=== PATIENT | female | born 1995 | race Caucasian/White ===

== ENCOUNTER 2016-12-27 10:18 | Emergency (ER) | payer BC, OTHER ==
[~2016-12-27] VITALS: Ht 165.1 cm; Wt 84.6 kg
[2016-12-27 10:26] VITALS: TEMP 37.2; Ht 165.1 cm; Wt 84.6 kg
[2016-12-27] MEDS ORDERED: IBUP-103 PO (10:40)
[2016-12-27] MEDS ORDERED: DOXY-300 PO (10:40)
[2016-12-27] MEDS ORDERED: BCPILLS PO (10:40)
[2016-12-27] MEDS ORDERED: SERT-234 PO (10:40)
[2016-12-27] MEDS ORDERED: ASPI-391 PO (10:40)
[2016-12-27] MEDS ORDERED: ONDANSETRON INJ 2 MG/ML 2 ML VIAL IV STA (11:07)
[2016-12-27] MEDS ORDERED: SODIUM CHLORIDE 0.9% 1000ML 1,000 ML IV STA (11:07)
--- NOTE | 2016-12-27 11:12 | EMERGENCY ROOM VISIT NOTE ---
History Report prepared by Winnie: Fiorella Carpenter Under the Supervision of: Dr. Joshua Rouse M.D. First contact with patient: 10:36 Chief Complaint: DEHYDRATION Stated Complaint: DEHYDRATION, V, HANDS AND ARMS TINGLING History of Present Illness The patient is a 21 year old white female with no past medical histry who presents to the ED with a cc of constant dehydration beginning 2 hours ago. Pt states that she was drinking last night and is now very dehydrated. She notes that she has had body tingling and hand cramping this morning. Positive nausea, vomiting, productive cough. Negative urinary symptoms, bowel changes. Pt states friend has bronchitis. She notes that her LNMP was 7 weeks ago and this is not normal for her. Source of History: patient Onset: 2 hours ago Position: other (global) Quality: other (dehydration) Timing: constant Associated Symptoms: + cough, + nausea, + vomiting, No urinary symptoms Note: Pt complains of body tingling and hand cramping. Review of Systems See HPI for pertinent positives and negatives. A total of ten systems were reviewed and were otherwise negative. Past Medical & Surgical Medical Problems: (1) No Known Active Medical Problems Family History No pertinent family history stated. Social History Smoking Status: Never Smoker Alcohol Use: occasionally Marital Status: single Housing Status: lives with roommate Occupation Status: [employer] student Current/Historical Medications Scheduled Control Pills ( Control Pills), 1 TAB PO DAILY Doxycycline (Monohydrate) (Doxycycline), 1 CAP PO DAILY Ondasetron Odt (Zofran Odt), 4 MG SL Q6H Sertraline (Zoloft), 150 MG PO DAILY Scheduled PRN Qdselbx-Pibhesyehgafv-Isfnlysp (Excedrin Extra Strength), 1 TAB PO UD PRN for Pain Ibuprofen Tab (Advil), 200-600 MG PO Q4H PRN for Pain Allergies Coded Allergies: No Known Allergies (Unverified , 12/27/16) Physical Exam Vital Signs Date Time Temp Pulse Resp B/P (MAP) Pulse Ox O2 Delivery O2 Flow Rate FiO2 12/27/16 12:40 83 16 130/85 98 Room Air 12/27/16 11:46 76 12/27/16 11:45 87 16 143/90 99 Room Air 12/27/16 10:26 37.2 95 16 138/90 96 Room Air Physical Exam GENERAL: Awake, alert, well-appearing, NAD HENT: Normocephalic, atraumatic. PERRL, EOM intact, vision intact EYES: Normal conjunctiva. Sclera non-icteric. NECK: Supple. No nuchal rigidity. FROM. RESPIRATORY: CTAB, no rhonchi, wheezing, crackles CARDIAC: RRR, no MRG ABDOMEN: Soft, NTND, BS+ MSK: No chest wall TTP, no LE edema NEURO: CN 2-12 intact, 5/5 upper and lower extremity strength, no dysmetria, no drift, good finger to nose, no sensory deficits. SKIN: No rash or jaundice noted. Medical Decision & Procedures ER Provider Diagnostic Interpretation: X-ray: Per my interpretation, radiologist review. CHEST ONE VIEW PORTABLE FINDINGS: The lungs are clear. Cardiac silhouette is normal in size. No pleural effusions. No pneumothorax. IMPRESSION: No acute process. Electronically signed by: Cristopher Chapin M.D. 12/27/2016 11:43 AM Dictated Date/Time: 12/27/2016 11:42 AM Laboratory Results 12/27/16 11:30 Red Blood Count 4.81, Mean Corpuscular Volume 86.9, Mean Corpuscular Hemoglobin 30.8, Mean Corpuscular Hemoglobin Concent 35.4, Mean Platelet Volume 8.3, Neutrophils (%) (Auto) 64.5, Lymphocytes (%) (Auto) 20.8, Monocytes (%) (Auto) 12.5, Eosinophils (%) (Auto) 1.8, Basophils (%) (Auto) 0.2, Neutrophils # (Auto ) 3.63, Lymphocytes # (Auto) 1.17, Monocytes # (Auto) 0.70, Eosinophils # (Auto ) 0.10, Basophils # (Auto) 0.01 12/27/16 11:30 Test 12/27/16 11:30 12/27/16 12:30 White Blood Count 5.62 K/uL (4.8-10.8) Red Blood Count 4.81 M/uL (4.2-5.4) Hemoglobin 14.8 g/dL (12.0-16.0) Hematocrit 41.8 % (37-47) Mean Corpuscular Volume 86.9 fL (80-100) Mean Corpuscular Hemoglobin 30.8 pg (25-34) Mean Corpuscular Hemoglobin Concent 35.4 g/dl (32-36) Platelet Count 216 K/uL (130-400) Mean Platelet Volume 8.3 fL (7.4-10.4) Neutrophils (%) (Auto) 64.5 % Lymphocytes (%) (Auto) 20.8 % Monocytes (%) (Auto) 12.5 % Eosinophils (%) (Auto) 1.8 % Basophils (%) (Auto) 0.2 % Neutrophils # (Auto) 3.63 K/uL (1.4-6.5) Lymphocytes # (Auto) 1.17 K/uL (1.2-3.4) Monocytes # (Auto) 0.70 K/uL (0.11-0.59) Eosinophils # (Auto) 0.10 K/uL (0-0.5) Basophils # (Auto) 0.01 K/uL (0-0.2) RDW Standard Deviation 41.2 fL (36.4-46.3) RDW Coefficient of Variation 13.1 % (11.5-14.5) Immature Granulocyte % (Auto) 0.2 % Immature Granulocyte # (Auto) 0.01 K/uL (0.00-0.02) Anion Gap 8.0 mmol/L (3-11) Est Creatinine Clear Calc Drug Dose 118.0 ml/min Estimated GFR () 120.3 Estimated GFR (Non- 103.8 BUN/Creatinine Ratio 14.0 (10-20) Calcium Level 8.9 mg/dl (8.5-10.1) Total Bilirubin 0.5 mg/dl (0.2-1) Direct Bilirubin 0.1 mg/dl (0-0.2) Aspartate Amino Transf (AST/SGOT) 25 U/L (15-37) Alanine Aminotransferase (ALT/SGPT) 20 U/L (12-78) Alkaline Phosphatase 88 U/L (45-117) Total Protein 7.6 gm/dl (6.4-8.2) Albumin 3.8 gm/dl (3.4-5.0) Lipase 119 U/L (73-393) Urine Color YELLOW Urine Appearance CLOUDY (CLEAR) Urine pH >= 9.0 (4.5-7.5) Urine Specific [place] 1.020 (1.000-1.030) Urine Protein NEG (NEG) Urine Glucose (UA) NEG (NEG) Urine Ketones NEG (NEG) Urine Occult Blood NEG (NEG) Urine Nitrite NEG (NEG) Urine Bilirubin NEG (NEG) Urine Urobilinogen NEG (NEG) Urine Leukocyte Esterase SMALL (NEG) Urine WBC (Auto) 1-5 /hpf (0-5) Urine RBC (Auto) 5-10 /hpf (0-4) Urine Hyaline Casts (Auto) 1-5 /lpf (0-5) Urine Epithelial Cells (Auto) >30 /lpf (0-5) Urine Bacteria (Auto) 1+ (NEG) Urine Renal Epithelial Cells /lpf (0-5) Urine Crystals AMORPHOUS SEDIMENT (NONE Urine Test NEG (NEG) Laboratory results reviewed by me Medications Administered Medications (Trade) Dose Ordered Sig/Emeka Route Start Time Stop Time Status Last Admin Dose Admin Sodium Chloride 1,000 ml @ 999 mls/hr Q1H1M STAT IV 12/27/16 11:07 12/27/16 12:07 DC 12/27/16 11:39 999 MLS/HR Ondansetron HCl (Zofran Inj) 4 mg NOW STAT IV 12/27/16 11:07 12/27/16 11:09 DC 12/27/16 11:38 4 MG ED Course 1036: The patient was evaluated in room C10. A complete history and physical exam was performed. 1107: Zofran Inj 4mg IV, Sodium Chloride 1000 ml @ 999 mls/hr IV. 1242: I reevaluated and updated the patient. 1257: I reevaluated the patient. Discussed results and discharge instructions: She verbalized understanding and agreement. The patient is ready for discharge. Medical Decision The patient is a 21 year old white female with no past medical history who presents to the ED with a cc of constant dehydration beginning 2 hours ago. Differential diagnosis: Etiologies such as appendicitis, diverticulitis, PUD, biliary pathology, UTI, pancreatitis, obstruction, mesenteric ischemia, aortic pathology, infections, inflammatory bowel disease, renal colic, as well as others were entertained. Patient was seen and evaluated the bedside. Patient has been complaining of inability to tolerate by mouth for the last 2 hours. Patient does admit to drinking last evening. Patient also notes that her last period was 7 weeks ago which is not normal for her. Patient has had some mild cough. Patient received blood work, UA, urine test, chest x-ray and supportive care. Patient's blood work was fairly unremarkable. UA was negative for infection. UPT also negative. Patient LFTs and lipase within normal limits. Patient was feeling much improved. Patient was told to abstain from alcohol and to continue adequate fluid hydration. Patient was given strict follow-up, discharge, return precautions as the patient was not deemed to have a medical or surgical emergency after being worked up. Patient agreed with plan of care and patient was discharged home. Medication Reconcilliation Current Medication List: was personally reviewed by me Blood Pressure Screening Patient's blood pressure: Elevated blood pressure Blood pressure disposition: Elevated BP felt to be situational Impression Primary Impression: Nausea & vomiting Additional Impression: Encounter for alcohol cessation counseling Scribe Attestation The scribe's documentation has been prepared under my direction and personally reviewed by me in its entirety. I confirm that the note above accurately reflects all work, treatment, procedures, and medical decision making performed by me. Departure Information Dispostion Home / Self-Care Prescriptions Ondasetron Odt (ZOFRAN ODT) 4 Mg Tab 4 MG SL Q6H for Nausea, #6 TAB Prov: Joshua Rouse M.D. 12/27/16 Referrals No Doctor, Assigned (PCP) Patient Instructions Alcohol Abuse - [facility], ED Nausea Vomiting, My [facility] Additional Instructions Please return to the emergency department if you have worsening or recurrent symptoms not amenable to at-home treatment. Please call for a follow-up appointment with her primary care physician. Please take your medications as prescribed. If you have other concerns and/or complaints please feel free to also call your primary care physician's office or return the ED for further evaluation, management, and treatment. You may take 600 mg Ibuprofen every 6 hours as needed for pain with food for no more than 2 consecutive days. You may take tylenol 1000mg every 6 hours as needed for pain. You may take motrin and tylenol separately or at the same time. Avoid alcohol. You have been examined and treated today on an emergency basis only. This is not a substitute for, or an effort to provide, complete comprehensive medical care. It is impossible to recognize and treat all injuries or illnesses in a single emergency department visit. It is therefore important that you follow up closely with [facility]. Call as soon as possible for an appointment. Thank you for your time and consideration. I look forward to speaking with you again soon. Please don't hesitate to call us if you have any questions. Problem Qualifiers Primary Impression: Nausea & vomiting Vomiting type: unspecified Vomiting Intractability: non-intractable Qualified Codes: R11.2 - Nausea with vomiting, unspecified
[2016-12-27 11:43] LABS: BASO % 0.2 %; BASO ABS # 0.01 K/uL (0-0.2); COMPLETE YES; EOS % 1.8 %; HEMATOCRIT 41.8 % (37-47); IG% 0.2 %; LYMPH % 20.8 %; LYMPH ABS # 1.17 K/uL (1.2-3.4); MEAN CELL VOLUME 86.9 fL (80-100); MEAN CORPUSCULAR HEMOGLOBIN 30.8 pg (25-34); MEAN CORPUSCULAR HGB CONC 35.4 g/dl (32-36); MEAN PLATELET VOLUME 8.3 fL (7.4-10.4); MONO % 12.5 %; NEUT % 64.5 %; PLATELET COUNT 216 K/uL (130-400); RED BLOOD COUNT 4.81 M/uL (4.2-5.4); WHITE BLOOD COUNT 5.62 K/uL (4.8-10.8)
--- NOTE | 2016-12-27 11:44 | DIAGNOSTIC IMAGING REPORT ---
CHEST ONE VIEW PORTABLE HISTORY: Generalized ABDOMINAL PAIN/GI COMPARISON: None. FINDINGS: The lungs are clear. Cardiac silhouette is normal in size. No pleural effusions. No pneumothorax. IMPRESSION: No acute process. Electronically signed by: Cristopher Chapin M.D. 12/27/2016 11:43 AM Dictated Date/Time: 12/27/2016 11:42 AM
[2016-12-27 11:54] LABS: CALCIUM 8.9 mg/dl (8.5-10.1); CREATININE 0.81 mg/dl (0.60-1.20); POTASSIUM 3.9 mmol/L (3.5-5.1)
[2016-12-27 12:39] LABS: URINE APPEARANCE CLOUDY (CLEAR); URINE BILIRUBIN NEG (NEG); URINE COLOR YELLOW; URINE EPITHELIAL CELL AUTO >30 /lpf (0-5); URINE NITRITE NEG (NEG); URINE PH >= 9.0 (4.5-7.5); UROBILINOGEN NEG (NEG); ZZUR CULT IF INDIC CLEAN CATCH YES
[2016-12-27 12:40] VITALS: BP 130/85; PULSE 83; O2SAT 98
[2016-12-27 12:40] LABS: MANUAL MICROSCOPIC REQUIRED? NO; REVIEW REQ? YES
[2016-12-27] MEDS ORDERED: ONDA4TAB10 SL (12:54)
== END 2016-12-27 13:03 | disposition home or self-care (01) ==
LOC: C.EDB 10:20 → C.EDC 13:03
DX: R11.2 Nausea with vomiting, unspecified (principal); Z71.89 Other specified counseling; Z79.3 Long term (current) use of hormonal contraceptives